=== PATIENT | male | born 1985 | race Caucasian/White ===

== ENCOUNTER 2017-04-14 16:00 | Emergency (ER) | payer OTHER ==
[2017-04-14 16:20] VITALS: BP 162/103; PULSE 59; RESP 20; TEMP 98.1
[2017-04-14] MEDS ORDERED: PROPARACAINE 0.5% OPHTH DROPS 15 ML BTL LEFT EYE STA (16:39)
[2017-04-14] MEDS ORDERED: TOBRAMYCIN 0.3% OPHTH DROPS 5 ML BTL LEFT EYE STA (17:08)
[2017-04-14] MEDS ORDERED: DIPH,PERTUS(ACELL)TETVAC-LF 0.5 ML VIAL IM ONE (17:10)
--- NOTE | 2017-04-14 17:15 | ED ---
Eye Problem HPI - General Chief complaint: Eye Problems Stated complaint: FB eye Time Seen by Provider: 04/14/17 16:39 Source: patient Mode of arrival: ambulatory Limitations: no limitations - History of Present Illness Initial comments: 32-year-old male presents with left eye irritation for the last few days. Patient thinks he got metal in it. Patient admits to seen at non clinical advisor today but they were unable to attempt to remove his foreign body i and sent to the ER. Patient denies any visual changes. No drainage. Patient noticed some redness today. Patient denies any fevers. No injury to the eye. chief complaint: eye pain, foreign body Location: left eye Eye Symptoms: redness, pain, foreign body sensation Treatments Prior to Arrival: irrigated eye, removed contact lens, other (went to non clinical advisor) - Related Data Allergies Allergy/AdvReac Type Severity Reaction Status Date / Time Penicillins Allergy Unknown Verified 04/14/17 16:19 Review of Systems ROS Statement: Those systems with pertinent positive or pertinent negative responses have been documented in the HPI. ROS Other: All systems not noted in ROS Statement are negative. Constitutional: Denies: fever Eyes: Reports: eye pain (Left side). Denies: eye discharge, vision change ENT: Denies: ear pain Neurological: Denies: headache, weakness Past Medical History Past Medical History: No Reported History History of Any Multi-Drug Resistant Organisms: None Reported Past Surgical History: No Surgical Hx Reported Past Psychological History: No Psychological Hx Reported Smoking Status: Former smoker Past Alcohol Use History: Daily Past Drug Use History: None Reported General Exam Limitations: no limitations General appearance: alert, in no apparent distress Eye exam: Present: normal appearance, PERRL, EOMI, conjunctival injection (Left side), other (Foreign body around 8:00). Absent: scleral icterus, periorbital swelling Pupils: Present: normal accommodation ENT exam: Present: normal exam, mucous membranes moist Neck exam: Present: normal inspection. Absent: tenderness, meningismus, lymphadenopathy Course Vital Signs 04/14/17 16:17 Temperature 98.1 F Pulse Rate 59 L Respiratory 20 Rate Blood Pressure 162/103 O2 Sat by Pulse 100 Oximetry Procedures - Procedures Initial comment: Patient was given 2 drops of proparacaine sterile Q-tip was used did attempt to remove foreign body unable to remove it therefore 18-gauge needle was used along with another sterile Q-tip and foreign body was removed. Fluorescein and normal saline was used small abrasion noted around the foreign body. Patient tolerated it well no complications. 2 drops of tobramycin ophthalmic solution was given. Medical Decision Making - Medical Decision Making Patient explained to rest eye over the next few days continue with antibiotics as directed. Patient to follow-up with stock driver specialist in 1-2 days for recheck especially if not improving. If symptoms progress or worsen patient to return to the ER. Disposition Clinical Impression: Foreign body, eye, Eye abrasion Disposition: HOME SELF-CARE Condition: Good Instructions: Eye Foreign Body (ED), Abrasion (ED) Additional Instructions: Patient to continue tobramycin ophthalmic drops 2 drops every 6 hours 7 days. Patient to leave contacts out until feeling better. Patient to not put drops over the lenses. Referrals: None,Stated [Primary Care Provider] - 1-2 days Marcelino Villafuerte MD [STAFF PHYSICIAN] - 1-2 days Time of Disposition: 17:15
== END 2017-04-14 17:32 | disposition home or self-care (01) ==
LOC: EC 16:00
DX: T15.92XA Foreign body on external eye, part unspecified, left eye, initial encounter (principal); Z23 Encounter for immunization; Z88.0 Allergy status to penicillin; Z87.891 Personal history of nicotine dependence
CPT/HCPCS: 65205; 90471; 90715; 99283